=== PATIENT | male | born 1980 | race African-American/Black ===

== ENCOUNTER → 2016-06-07 | Outpatient (CLI) | payer OTHER | END | disposition home or self-care (01) | LOC: C.LABSPEC 14:09 | PROVIDERS: ATTEND Family Medicine | DX: L02.415 Cutaneous abscess of right lower limb (principal) ==

== ENCOUNTER 2017-06-11 09:36 | Emergency (ER) | payer OTHER ==
[~2017-06-11] VITALS: Ht 170.2 cm; Wt 59.0 kg
[2017-06-11 09:37] VITALS: TEMP 36.7; Ht 170.2 cm; Wt 59.0 kg
[2017-06-11] MEDS ORDERED: XYLOCAINE 1%/SOD BICARB 20 ML VIAL INFIL ONE (09:57)
--- NOTE | 2017-06-11 10:32 | EMERGENCY ROOM VISIT NOTE ---
ED Visit Note First contact with patient: 09:47 CHIEF COMPLAINT: Right third finger laceration this morning HISTORY OF PRESENT ILLNESS: Patient is a left-hand dominant 36-year-old male who presents emergency department for evaluation of a laceration to his right third finger that he sustained at school just prior to arrival. He was trying to cut auto body filler with putty knife when he slipped, accidentally striking the right third finger, causing the laceration described below. There was fairly brisk bleeding initially which has been controlled with pressure. He reports generalized numbness of the finger. No weakness. REVIEW OF SYSTEMS: Review of systems as per HPI. All other systems reviewed were negative. At least 6 systems reviewed. PMH: Electronic medical records are reviewed and summarized as above/below. See Problem List. His tetanus is up-to-date. SOCIAL HISTORY: Patient lives at home with family. Non-smoker, occasional alcohol use. PHYSICAL EXAM: Vital Signs: Reviewed Nurse's notes. CONSTITUTIONAL: Patient is a well-appearing 36-year-old -[place] male who is awake and alert and in no acute distress. INTEGUMENTARY: There is a 2.5 cm long laceration on the palmar aspect of the right third finger, over the PIP crease. The edges gape apart with traction. There is no foreign material in the wound and it looks clean. There is no bleeding. No deep structures such as tendons or nerves are seen in the base of the wound. Extension of the finger is full and strong. The patient is able to flex at the MCP, the PIP and the DIP, with each joint isolated. EMERGENCY DEPARTMENT COURSE: Using sterile technique, saline and Betadine cleansing, and 1% lidocaine anesthesia, the laceration was repaired with 8, 5-0 nylon sutures. Bacitracin and a light dressing were applied. Metal splint finger splint was also placed. The patient can also seb tape for partial immobilization. On exam, he does not have any evidence for a flexor tendon injury. I do not suspect nerve injury. Medication reconciliation: I attest that I have personally reviewed the patient' s current medication list. Blood pressure screening : Patient was found to have normal blood pressure on screening and does not require follow-up. Current/Historical Medications No Active Prescriptions or Reported Meds Allergies Coded Allergies: No Known Allergies (Unverified , 06/11/17) Vital Signs Date Time Temp Pulse Resp B/P (MAP) Pulse Ox O2 Delivery O2 Flow Rate FiO2 06/11/17 11:09 57 16 117/73 99 06/11/17 11:00 58 18 106/65 06/11/17 09:37 36.7 84 16 113/60 95 Room Air Departure Information Impression Primary Impression: Finger laceration Prescriptions No Active Prescriptions or Reported Meds Referrals No Doctor, Assigned (PCP) Patient Instructions [facility] Additional Instructions Keep wound clean and dry. Do not allow any crusting or dried blood to accumulate on sutures. If this occurs, use a 1:1 solution of hydrogen peroxide/ water on a Q-tip to clean the wound. Use an antibiotic ointment for 3-4 days, then let wound dry. Suture removal in 12-14 days. Return sooner for any signs of infection (increasing redness, swelling, drainage). Wear the metal finger splint for support. Ice and elevate for swelling and pain. Ibuprofen 600 mg and Tylenol 1000 mg every 6 hrs for pain.
[2017-06-11 11:09] VITALS: BP 117/73; PULSE 57; O2SAT 99
== END 2017-06-11 11:10 | disposition home or self-care (01) ==
LOC: C.EDB 09:38 → C.EDC 11:10
DX: S61.212A Laceration without foreign body of right middle finger without damage to nail, initial encounter (principal); W26.0XXA Contact with knife, initial encounter; Y92.219 Unspecified school as the place of occurrence of the external cause